=== PATIENT | female | born 1990 | race Caucasian/White ===

== ENCOUNTER 2021-07-12 19:38 | Emergency (ER) | payer OTHER, MEDICAID ==
[~2021-07-12] VITALS: Ht 162.6 cm; Wt 54.9 kg
[2021-07-12 19:38] VITALS: BP 117/72
== END 2021-07-13 03:27 | disposition left against medical advice (07) ==
LOC: ER 19:38
DX: M25.561 Pain in right knee (principal); Z53.21 Procedure and treatment not carried out due to patient leaving prior to being seen by health care provider
CPT/HCPCS: 73562; 81025